=== PATIENT | female | born 1950 | race Hispanic/Latino ===

== ENCOUNTER 2018-09-28 12:07 | Emergency (ER) | payer OTHER ==
[~2018-09-28] VITALS: Ht 157.5 cm; Wt 78.0 kg
--- OUTSIDE RECORDS SUMMARY | 2018-09-28 12:09 | XMS REPORT ---
Author Author Barbara Puente [facility] eClinicalWorks Address Unknown Phone Unavailable Care Team Providers Care Composite Bond Worker Name Role Phone Barbara Puente Unavailable Encounters Encounter Location Date diab chk [facility] Nov 19, 2013 RESULTS [facility] Dec 03, 2013 Refill [facility] May 21, 2014 medication refill [facility] Jul 02, 2014 diabetes/HTN check [facility] May 30, 2013 test strips [facility] Jul 08, 2013 Unknown [facility] Oct 25, 2013 MED REFILL [facility] February 26, 2015 WWE [facility] Jul 17, 2014 Refill [facility] Sep 23, 2014 ABNORMAL UA [facility] March 31, 2015 Unknown [facility] April 03, 2015 2 WEEK FOLLOW UP [facility] March 17, 2015 Unknown [facility] March 29, 2015 Problems Problem Type Condition ICD-9 Code Onset Dates Condition Status Problem Hyperlipidemia 272.4 Active Problem Hypertension 401.9 Active Problem Kidney stones 592.0 Active Problem Fatty liver 571.8 Active Problem Type II diabetes mellitus, uncontrolled 250.02 Active Problem Obesity 278.00 Active Medications Medication Code System Code Instructions Start Date End Date Status Dosage OneTouch Verio MEDISPAN [address]-72 0 In Vitro use bid dx: 250.02 March 29, 2015 Active as directed Social History Social History Element Qualifiers Date Reported Depression Screening: . 02/26/15 March 17, 2015 Flu Vaccine: . no March 17, 2015 Last Colonoscopy: . never March 17, 2015 Last Bone Density: . 2012March 17, 2015 children . 3 March 17, 2015 Tobacco Use: . Are you a: never smoker March 17, 2015 Use of recreational / street drugs? . Answer: No March 17, 2015 Marital Status: . Magdiel March 17, 2015 Do you drink alcohol? . 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
--- OUTSIDE RECORDS SUMMARY | 2018-09-28 12:09 | XMS REPORT ---
Author Author He Aguilera Organization eClinicalWorks Address Unknown Phone Unavailable Care Team Providers Care Manager Air Name Role Phone He Aguilera CP Unavailable Encounters Encounter Location Date diab chk [facility] Nov 19, 2013 RESULTS [facility] Dec 03, 2013 Refill [facility] May 21, 2014 diabetes/HTN check [facility] May 30, 2013 test strips [facility] Jul 08, 2013 Unknown [facility] Oct 25, 2013 Problems Problem Type Condition ICD-9 Code Onset Dates Condition Status Problem Hypertension 401.9 Active Problem Type II diabetes mellitus, uncontrolled 250.02 Active Problem Hyperlipidemia 272.4 Active Problem Obesity 278.00 Active Problem Fatty liver 571.8 Active Medications Medication Code System Code Instructions Start Date End Date Status Dosage Januvia MEDISPAN [address]-22 100 mg Orally Once a day (must see doctor before next refill) May 30, 2013 Active 1 tablet [facility] [address]-80 5 MG Orally Once a day (must see doctor before next refill) Dec 03, 2013 Active 1 tablet Losartan Potassium MEDISPAN [address]-84 50 mg Orally once a day (must see doctor before next refill) Active 1 tablet MetFORMIN HCl ER (MOD) MEDISPAN [address]-70 1000 mg Orally twice a day (bid) (must see doctor before next refill) Nov 19, 2013 Active 1 tablet Social History Social History Element Qualifiers Date Reported children . 3 Dec 03, 2013 Tobacco Use: . Are you a: never smoker Dec 03, 2013 Marital Status: . Magidel Dec 03, 2013 Do you drink alcohol? . 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
--- OUTSIDE RECORDS SUMMARY | 2018-09-28 12:09 | XMS REPORT ---
Author Author Kathryn Rollins Organization eClinicalWorks Address Unknown Phone Unavailable Care Team Providers Care Life Science Teacher Name Role Phone Kathryn Rollins Unavailable Encounters Encounter Location Date diab chk [facility] Nov 19, 2013 RESULTS [facility] Dec 03, 2013 Refill [facility] May 21, 2014 medication refill [facility] Jul 02, 2014 diabetes/HTN check [facility] May 30, 2013 test strips [facility] Jul 08, 2013 Unknown [facility] Oct 25, 2013 MED REFILL [facility] February 26, 2015 WWE [facility] Jul 17, 2014 Refill [facility] Sep 23, 2014 Refill [facility] April 09, 2015 Unknown [facility] April 09, 2015 ABNORMAL UA [facility] March 31, 2015 Unknown [facility] April 03, 2015 2 WEEK FOLLOW UP [facility] March 17, 2015 Unknown [facility] March [...] End Date Status Dosage OneTouch Verio MEDISPAN [address]-47 1 intravenously testing TID dx: 250.02 (disp-300 strips) March 29, 2015 Active 1 strip Social History Social History Element Qualifiers Date Reported Depression Screening: . 02/26/15 March 31, 2015 Flu Vaccine: . no March 31, 2015 Last Colonoscopy: . never March 31, 2015 Last Bone Density: . 2012March 31, 2015 children . 3 March 31, 2015 Tobacco Use: . Are you a: never smoker March 31, 2015 Use of recreational / street drugs? . Answer: No March 31, 2015 Marital Status: . Magdiel March 31, 2015 Do you drink alcohol? . 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
--- OUTSIDE RECORDS SUMMARY | 2018-09-28 12:09 | XMS REPORT ---
Author Author Denisse Sanchez [facility] eClinicalWorks Address Unknown Phone Unavailable Care Team Providers Care Quarter Inspector Name Role Phone Denisse Sanchez Unavailable Encounters Encounter Location Date diabetes/HTN check [facility] May 30, 2013 test strips [facility] Jul 08, 2013 Problems Problem Type Condition ICD-9 Code Onset Dates Condition Status Problem Type II diabetes mellitus, uncontrolled 250.02 Active Problem Obesity 278.00 Active Problem Hypertension 401.9 Active Problem Fatty liver 571.8 Active Social History Social History Element Qualifiers Date Reported children . 3 May 30, 2013 Tobacco Use: . Are you a: never smoker May 30, 2013 Marital Status: . Magdiel May 30, 2013 Do you drink alcohol? . 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
--- OUTSIDE RECORDS SUMMARY | 2018-09-28 12:09 | XMS REPORT ---
Author Author Denisse Sanchez Organization eClinicalWorks Address Unknown Phone Unavailable Care Team Providers Care Portable Track Crew Chief Name Role Phone Denisse Sanchez Unavailable Encounters Encounter Location Date diabetes/HTN check [facility] May 30, 2013 Problems Problem Type Condition ICD-9 Code Onset Dates Condition Status Problem Type II diabetes mellitus, uncontrolled 250.02 Active Problem Obesity 278.00 Active Problem Hypertension 401.9 Active Assessment Type II diabetes mellitus, uncontrolled 250.02 Active Assessment Fatty liver 571.8 Active Problem Fatty liver 571.8 Active Assessment Hypertension 401.9 Active Medications Medication Code System Code Instructions Start Date End Date Status Dosage Januvia [facility] [address]-71 50 mg Orally Once a day January 02, 2013 Inactive 1 tablet MetFORMIN HCl ER [facility] [address]-07 500 mg Orally twice daily Active 1 tablet Januvia [facility] [address]-78 100 mg Orally Once a day May 30, 2013 Active 1 tablet Losartan Potassium [facility] [address]-39 50 MG once a day Active 1 tablet Social History Social History Element Qualifiers Date Reported children . 3 May 30, 2013 Tobacco Use: . Are you a: never smoker May 30, 2013 Marital Status: . Magdiel May 30, 2013 Do you drink alcohol? . 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 Metabolic Panel (14) Summary Purpose eClinicalWorks Submission
--- OUTSIDE RECORDS SUMMARY | 2018-09-28 12:09 | XMS REPORT ---
Author Author Ottoniel Lema Organization eClinicalWorks Address Unknown Phone Unavailable Care Team Providers Care Distribution Lineman Name Role Phone Ottoniel Lema CP Unavailable Allergies, Adverse Reactions, Alerts Substance Reaction Event Type N.K.D.A. Info Not Available Non Drug Allergy Problems Problem Type Condition Code Onset Dates Condition Status Assessment Colon cancer screening Z12.11 Active Problem Essential hypertension I10 Active Assessment Breast cancer screening Z12.31 Active Problem Type 2 diabetes mellitus without complication, without long-term current use of insulin E11.9 Active Problem Calculus of kidney N20.0 Active Problem Acne rosacea L71.9 Active Problem Fatty liver K76.0 Active Problem Obesity E66.9 Active Problem Dyslipidemia E78.5 Active Problem Type II diabetes mellitus, uncontrolled 250.02 Active Assessment Acne rosacea L71.9 Active Assessment Dyslipidemia E78.5 Active Assessment Fatty liver K76.0 Active Assessment Systolic murmur R01.1 Active Assessment Obesity E66.9 Active Assessment Type 2 diabetes mellitus without complication, without long-term current use of insulin E11.9 Active Assessment Essential hypertension I10 Active Medications Medication Code System Code Instructions Start Date End Date Status Dosage MetFORMIN HCl ER [facility] 96943675504 500 MG Oral Active TAKE 2 TABLET TWICE DAILY OneTouch Verio [facility] 49229426273 1 intravenously testing TID dx: 250.02 (disp- 300 strips) March 29, 2015 Active 1 strip OneTouch Lancets [facility] 68597242976 1 subcutaneously 2 times daily Dx:250.02 March 31, 2015 Active 1 lancet MetFORMIN HCl ER (MOD) [facility] 88072974825 1000 mg Orally once daily Active 2 tablets Farxiga [facility] 36339989243 10 MG Oral Active TAKE 1 TABLET BY MOUTH EVERY MORNING Januvia [facility] 89369347656 100 mg Orally Once a day Active 1 tablet GlyBURIDE [facility] [address]-71 5 MG Orally twice a day (bid) Sep 29, 2015 Active 1 tablet Doxycycline Hyclate [facility] 43369382363 50 mg Orally every 12 hrs March 15, 2018 May 15, 2018 Active 1 capsule Metrogel [facility] [address]-68 0.75 % Externally Twice a day March 15, 2018 Active 1 application to affected area Atorvastatin Calcium [facility] 41821744638 40 MG Oral Active TAKE 1 TABLET EVERY OTHER DAY FOR CHOLESTEROL Glimepiride [facility] 64992948784 2 MG Oral Active TAKE 1 TABLET IN THE MORNING AND 1/2 TABLET EVERY EVENING -TAKE WITH FOOD Trulicity 1.5mg [facility] 93922108787 1.5mg/0.5mL SQ Once a week Active 1.5mg/1 pen Losartan Potassium [facility] 74615352866 50 mg Orally once a day Active 1 tablet OneTouch Verio [facility] 29465366819 1 In Vitro twice daily DX:250.02 April 03, 2015 Active as directed Vital Signs Date/Time: March 15, 2018 BMI 33.80 Index Weight 176 lbs Height 60.5 in Temperature 98.7 F Cardiac Monitoring Heart Rate 90 /min Blood Pressure Diastolic 60 mm Hg Blood Pressure Systolic 136 mm Hg Results No Known Results Summary Purpose eClinicalWorks Submission
--- OUTSIDE RECORDS SUMMARY | 2018-09-28 12:09 | XMS REPORT ---
Author Author Denisse Sanchez [facility] eClinicalWorks Address Unknown Phone Unavailable Care Team Providers Care Rocket Engine Mechanic Name Role Phone Denisse Sanchez Unavailable Encounters Encounter Location Date diab chk [facility] Nov 19, 2013 diabetes/HTN check [facility] May 30, 2013 test strips [facility] Jul 08, 2013 Unknown [facility] Oct 25, 2013 Problems Problem Type Condition ICD-9 Code Onset Dates Condition Status Problem Type II diabetes mellitus, uncontrolled 250.02 Active Problem Obesity 278.00 Active Problem Hypertension 401.9 Active Assessment Hypertension 401.9 Active Assessment Obesity 278.00 Active Problem Fatty liver 571.8 Active Assessment Type II diabetes mellitus, uncontrolled 250.02 Active Medications Medication Code System Code Instructions Start Date End Date Status Dosage Losartan Potassium [facility] [address]-75 50 MG once a day Active 1 tablet MetFORMIN HCl ER (MOD) [facility] [address]-15 1000 mg Orally twice a day (bid) Nov 19, 2013 Active 1 tablet Januvia [facility] [address]-18 100 mg Orally Once a day May 30, 2013 Active 1 tablet MetFORMIN HCl ER [facility] [address]-54 500 mg Orally twice daily Inactive 2 tablet Social History Social History Element Qualifiers Date Reported children . 3 Nov 19, 2013 Tobacco Use: . Are you a: never smoker Nov 19, 2013 Marital Status: . Magdiel Nov 19, 2013 Do you drink alcohol? . 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 Metabolic Panel (14) Summary Purpose eClinicalWorks Submission
--- OUTSIDE RECORDS SUMMARY | 2018-09-28 12:09 | XMS REPORT ---
Author Author Kathryn Rollins [facility] eClinicalWorks Address Unknown Phone Unavailable Care Team Providers Care Store Receiving Clerk Name Role Phone Kathryn Rollins CP Unavailable Allergies, Adverse Reactions, Alerts Substance Reaction Event Type N.K.D.A. Info Not Available Non Drug Allergy Encounters Encounter Location Date diab chk [facility] Nov 19, 2013 RESULTS [facility] Dec 03, 2013 Refill [facility] May 21, 2014 medication refill [facility] Jul 02, 2014 diabetes/HTN check [facility] May 30, 2013 test strips [facility] Jul 08, 2013 Unknown [facility] Oct 25, 2013 MED REFILL [facility] February 26, 2015 WWE [facility] Jul 17, 2014 Refill [facility] Sep 23, 2014 Problems Problem Type Condition ICD-9 Code Onset Dates Condition Status Assessment Hyperlipidemia 272.4 Active Assessment Hypertension 401.9 Active Assessment Type II diabetes mellitus, uncontrolled 250.02 Active Problem Hyperlipidemia 272.4 Active Problem Hypertension 401.9 Active Problem Kidney stones 592.0 Active Problem Fatty liver 571.8 Active Assessment Other follow-up examination V67.59 Active Problem Type II diabetes mellitus, uncontrolled 250.02 Active Problem Obesity 278.00 Active Assessment Abnormal EKG 794.31 Active Assessment Heart murmur 785.2 Active Assessment Encounter for screening mammogram for breast cancer V76.12 Active Assessment Obesity 278.00 Active Medications Medication Code System Code Instructions Start Date End Date Status Dosage MetFORMIN HCl ER (MOD) [facility] [address]-10 1000 mg Orally once daily Active 2 tablets GlyBURIDE [facility] [address]-32 5 MG Orally Once a day December 26, 2014 Active 1 tablet Losartan Potassium [facility] [address]-00 50 mg Orally once a day Active 1 tablet Januvia [facility] [address]-86 100 mg Orally Once a day Active 1 tablet Social History Social History Element Qualifiers Date Reported Last Bone Density: . 2013 February 26, 2015 Flu Vaccine: . no February 26, 2015 Last Colonoscopy: . never February 26, 2015 children . 3 February 26, 2015 Tobacco Use: . Are you a: never smoker February 26, 2015 Use of recreational / street drugs? . Answer: No February 26, 2015 Marital Status: . Magdiel February 26, 2015 Do you drink alcohol? . 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
--- OUTSIDE RECORDS SUMMARY | 2018-09-28 12:09 | XMS REPORT ---
Author Author Denisse Sanchez [facility] eClinicalWorks Address Unknown Phone Unavailable Care Team Providers Care Planning Analyst Name Role Phone Denisse Sanchez Unavailable Encounters Encounter Location Date diab chk [facility] Nov 19, 2013 RESULTS [facility] Dec 03, 2013 diabetes/HTN check [facility] May 30, 2013 test strips [facility] Jul 08, 2013 Unknown [facility] Oct 25, 2013 Problems Problem Type Condition ICD-9 Code Onset Dates Condition Status Assessment Hyperlipidemia 272.4 Active Assessment Obesity 278.00 Active Assessment Fatty liver 571.8 Active Assessment Visit for screening mammogram V76.12 Active Problem Hypertension 401.9 Active Problem Type II diabetes mellitus, uncontrolled 250.02 Active Problem Hyperlipidemia 272.4 Active Assessment Type II diabetes mellitus, uncontrolled 250.02 Active Assessment Hypertension 401.9 Active Problem Obesity 278.00 Active Problem Fatty liver 571.8 Active Medications Medication Code System Code Instructions Start Date End Date Status Dosage GlyBURIDE [facility] [address]-71 5 MG Orally Once a day Dec 03, 2013 Active 1 tablet Januvia [facility] [address]-04 100 mg Orally Once a day May 30, 2013 Active 1 tablet Losartan Potassium [facility] [address]-74 50 MG once a day Active 1 tablet MetFORMIN HCl ER (MOD) [facility] [address]-17 1000 mg Orally twice a day (bid) Nov 19, 2013 Active 1 tablet Social History Social History Element Qualifiers Date Reported children . 3 Dec 03, 2013 Tobacco Use: . Are you a: never smoker Dec 03, 2013 Marital Status: . Magdiel Dec 03, 2013 Do you drink alcohol? . 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
--- OUTSIDE RECORDS SUMMARY | 2018-09-28 12:09 | XMS REPORT ---
Author Author Jason Warren Organization eClinicalWorks Address Unknown Phone Unavailable Care Team Providers Care Cash Posting Specialist Name Role Phone Jason Warren CP Unavailable Encounters Encounter Location Date diab chk [facility] Nov 19, 2013 RESULTS [facility] Dec 03, 2013 Refill [facility] May 21, 2014 medication refill [facility] Jul 02, 2014 diabetes/HTN check [facility] May 30, 2013 test strips [facility] Jul 08, 2013 Unknown [facility] Oct 25, 2013 WWE [facility] Jul 17, 2014 Refill [facility] Sep 23, 2014 Problems Problem Type Condition ICD-9 Code Onset Dates Condition Status Problem Hyperlipidemia 272.4 Active Problem Hypertension 401.9 Active Problem Kidney stones 592.0 Active Problem Fatty liver 571.8 Active Problem Type II diabetes mellitus, uncontrolled 250.02 Active Problem Obesity 278.00 Active Medications Medication Code System Code Instructions Start Date End Date Status Dosage Januvia [facility] [address]-74 100 mg Orally Once a day May 30, 2013 Active 1 tablet MetFORMIN HCl ER (MOD) [facility] [address]-38 1000 mg Orally twice a day (bid) Nov 19, 2013 Active 1 tablet [facility] [address]-66 5 MG Orally Once a day Dec 03, 2013 Active 1 tablet Losartan Potassium [facility] [address]-35 50 mg Orally once a day Active 1 tablet Social History Social History Element Qualifiers Date Reported children . 3 Jul 17, 2014 Tobacco Use: . Are you a: never smoker Jul 17, 2014 Marital Status: . Magdiel Jul 17, 2014 Do you drink alcohol? . 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
--- OUTSIDE RECORDS SUMMARY | 2018-09-28 12:09 | XMS REPORT ---
Author Author Barbara Ferris Organization [employer] Address Unknown Phone Unavailable Care Team Providers Care Insurance Instructor Name Role Phone Barbara Ferris CP Unavailable Encounters Encounter Location Date diabetes/HTN check [facility] May 30, 2013 test strips [facility] Jul 08, 2013 Unknown [facility] Oct 25, 2013 Problems Problem Type Condition ICD-9 Code Onset Dates Condition Status Problem Type II diabetes mellitus, uncontrolled 250.02 Active Problem Obesity 278.00 Active Problem Hypertension 401.9 Active Problem Fatty liver 571.8 Active Medications Medication Code System Code Instructions Start Date End Date Status Dosage Accu-Chek Adelaida MULTUM 64376 Test In Vitro USE BID Oct 25, 2013 Active as directed Social History Social History [...]
--- OUTSIDE RECORDS SUMMARY | 2018-09-28 12:09 | XMS REPORT ---
Author Author Jason Warren Organization [employer] Address Unknown Phone Unavailable Care Team Providers Care Wire Frame Maker Name Role Phone Jason Warren CP Unavailable Allergies, Adverse Reactions, Alerts Substance Reaction Event Type N.K.D.A. Info Not Available Non Drug Allergy Encounters Encounter Location Date diab chk [facility] Nov 19, 2013 RESULTS [facility] Dec 03, 2013 Refill [facility] May 21, 2014 medication refill [facility] Jul 02, 2014 diabetes/HTN check [facility] May 30, 2013 test strips [facility] Jul 08, 2013 Unknown [facility] Oct 25, 2013 Problems Problem Type Condition ICD-9 Code Onset Dates Condition Status Assessment Urinary tract infection 599.0 Active Assessment Type II diabetes mellitus, uncontrolled 250.02 Active Assessment Hyperlipidemia 272.4 Active Assessment Encounter for long-term (current) use of other medications V58.69 Active Problem Hyperlipidemia 272.4 Active Problem Hypertension 401.9 Active Problem Kidney stones 592.0 Active Problem Fatty liver 571.8 Active Assessment Hypertension 401.9 Active Problem Type II diabetes mellitus, uncontrolled 250.02 Active Problem Obesity 278.00 Active Medications Medication Code System Code Instructions Start Date End Date Status Dosage Losartan Potassium [facility] [address]-80 50 mg Orally once a day Active 1 tablet [facility] [address]-46 800-160 MG Orally twice a day (bid) Jul 02, 2014 Jul 09, 2014 Active as directed MetFORMIN HCl ER (MOD) [facility] [address]-83 1000 mg Orally twice a day (bid) Nov 19, 2013 Active 1 tablet Januvia [facility] [address]-98 100 mg Orally Once a day May 30, 2013 Active 1 tablet GlyBURIDE [facility] [address]-99 5 MG Orally Once a day Dec 03, 2013 Active 1 tablet Social History Social History Element Qualifiers Date Reported children . 3 Jul 02, 2014 Tobacco Use: . Are you a: never smoker Jul 02, 2014 Marital Status: . Magdiel Jul 02, 2014 Do you drink alcohol? . 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
--- OUTSIDE RECORDS SUMMARY | 2018-09-28 12:09 | XMS REPORT ---
Author Author Kathryn Rollins [facility] e[employer] Address Unknown Phone Unavailable Care Team Providers Care Woods Rider Name Role Phone Kathryn Rollins CP Unavailable Allergies, Adverse Reactions, Alerts Substance Reaction Event Type N.K.D.A. Info Not Available Non Drug Allergy Encounters Encounter Location Date diab chk [facility] Nov 19, 2013 RESULTS [facility] Dec 03, 2013 Refill [facility] May 21, 2014 medication refill [facility] Jul 02, 2014 diabetes/HTN check [facility] May 30, 2013 2 WEEK FOLLOW UP [facility] March 17, 2015 test strips [facility] Jul 08, 2013 Unknown [facility] Oct 25, 2013 MED REFILL [facility] February 26, 2015 WWE [facility] Jul 17, 2014 Refill [facility] Sep 23, 2014 Problems Problem Type Condition ICD-9 Code Onset Dates Condition Status Assessment Obesity 278.00 Active Assessment Hypertension 401.9 Active Assessment Type II diabetes mellitus, uncontrolled 250.02 Active Problem Hyperlipidemia 272.4 Active Problem Hypertension 401.9 Active Problem Kidney stones 592.0 Active Problem Fatty liver 571.8 Active Assessment Encounter to discuss test results V65.49 Active Problem Type II diabetes mellitus, uncontrolled 250.02 Active Problem Obesity 278.00 Active Assessment Elevated LFTs 790.6 Active Assessment Leukocytes in urine 791.7 Active Assessment Urinary tract infection 599.0 Active Assessment Hyperlipidemia 272.4 Active Assessment BMI 36.0-36.9,adult V85.36 Active Assessment Fatty liver 571.8 Active Medications Medication Code System Code Instructions Start Date End Date Status Dosage Januvia [facility] [address]-35 100 mg Orally Once a day Active 1 tablet MetFORMIN HCl ER (MOD) [facility] [address]-75 1000 mg Orally once daily Active 2 tablets Invokana [facility] [address]-14 300 MG Orally Once a day March 17, 2015 Jul 15, 2015 Active 1 tablet Macrobid [facility] [address]-60 100 mg Orally every 12 hrs March 17, 2015 March 24, 2015 Active 1 capsule with food GlyBURIDE [facility] [address]-88 5 MG Orally Once a day December 26, 2014 Active 1 tablet Losartan Potassium [facility] [address]-93 50 mg Orally once a day Active [...] 2015 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
--- OUTSIDE RECORDS SUMMARY | 2018-09-28 12:09 | XMS REPORT ---
Author Author Jason Warren Organization [employer] Address Unknown Phone Unavailable Care Team Providers Care Road Roller Operator Hot Mix Name Role Phone Jason Warren CP Unavailable Allergies, Adverse Reactions, Alerts Substance Reaction Event Type N.K.D.A. Info Not Available Non Drug Allergy Encounters Encounter Location Date diab chk [facility] Nov 19, [address] [facility] Dec 03, [address] [facility] May 21, [address] [facility] Jul 02, 2014 diabetes/HTN check [facility] May 30, [address] [facility] Jul 08, [address] [facility] Oct 25, [address] [facility] Jul 17, 2014 Problems Problem Type Condition ICD-9 Code Onset Dates Condition Status Assessment Hypertension 401.9 Active Assessment Hyperlipidemia 272.4 Active Assessment Obesity 278.00 Active Assessment Well woman exam with routine gynecological exam V72.31 Active Assessment Type II diabetes mellitus, uncontrolled 250.02 Active Problem Hyperlipidemia 272.4 Active Problem Hypertension 401.9 Active Problem Kidney stones 592.0 Active Problem Fatty liver 571.8 Active Assessment Fatty liver 571.8 Active Problem Type II diabetes mellitus, uncontrolled 250.02 Active Problem Obesity 278.00 Active Medications Medication Code System Code Instructions Start Date End Date Status Dosage Losartan [facility] [address]-99 50 mg Orally once a day Active 1 tablet Januvia [facility] [address]-28 100 mg Orally Once a day May 30, 2013 Active 1 tablet GlyBURIDE [facility] [address]-51 5 MG Orally Once a day Dec 03, 2013 Active 1 tablet MetFORMIN HCl ER (MOD) [facility] [address]-30 1000 mg Orally twice a day (bid) Nov 19, 2013 Active 1 tablet Social History Social History Element Qualifiers Date Reported children . 3 Jul 17, 2014 Tobacco Use: . Are you a: never smoker Jul 17, 2014 Marital Status: . [facility] Jul 17, 2014 Do you drink alcohol? . Status: No Jul 17, 2014 Occupation: employed. Sales Jul 17, 2014 Vital Signs Date/Time: Jul 17, 2014 Weight 189 lbs Height 60.5 in Cardiac Monitoring Heart Rate 76 /min Blood Pressure Diastolic 66 mm Hg Blood Pressure Systolic 109 mm Hg Summary Purpose eClinicalWorks Submission
--- OUTSIDE RECORDS SUMMARY | 2018-09-28 12:09 | XMS REPORT ---
Author Author Kathryn Rollins [facility] e[employer] Address Unknown Phone Unavailable Care Team Providers Care Wash Crew Person Name Role Phone Kathryn Rollins Unavailable Encounters Encounter Location Date diab chk [facility] Nov 19, 2013 RESULTS [facility] Dec 03, 2013 Refill [facility] May 21, 2014 medication refill [facility] Jul 02, 2014 diabetes/HTN check [facility] May 30, 2013 test strips [facility] Jul 08, 2013 Unknown [facility] Oct 25, 2013 MED REFILL [facility] February 26, 2015 WWE [facility] Jul 17, 2014 Refill [facility] Sep 23, 2014 Refill [facility] April 09, 2015 Unknown [facility] April 09, 2015 ABNORMAL UA [facility] March 31, 2015 Unknown [facility] April 03, 2015 2 WEEK FOLLOW UP [facility] March 17, 2015 Unknown [facility] March 29, 2015 Problems Problem Type Condition ICD-9 Code Onset Dates Condition Status Problem Hyperlipidemia 272.4 Active Problem Hypertension 401.9 Active Problem Kidney stones 592.0 Active Problem Fatty liver 571.8 Active Problem Type II diabetes mellitus, uncontrolled 250.02 Active Problem Obesity 278.00 Active Medications Medication Code System Code Instructions Start Date End Date Status Dosage Macrobid [facility] [address]-57 100 mg PO bid April 09, 2015 April 16, 2015 Active 1 capsule Social History Social History Element Qualifiers Date [...]
--- OUTSIDE RECORDS SUMMARY | 2018-09-28 12:09 | XMS REPORT | Continuity of Care Document ---
Author Author [facility] Interface Address Unknown Phone Unavailable Problems Problem Status Onset Date Classification Date Reported Comments Source Z12.39 - ENCOUNTER FOR OTH SCREENING FO Active 06/20/2018 [facility] [place] SCREENING Active 06/27/2014 [place] ROUTINE Active 09/16/2011 [facility] Type II diabetes mellitus, uncontrolled Active Problem 03/22/2018 [facility] Obesity Active Problem 04/10/2015 [facility] Hypertension Active Problem 04/10/2015 [facility] Fatty liver Active Problem 04/10/2015 [facility] Hyperlipidemia Active Problem 04/10/2015 [facility] Essential hypertension Active Problem 03/22/2018 [facility] Breast cancer screening Active Diagnosis 03/22/2018 [facility] Type 2 diabetes mellitus without complication, without long-term current use of insulin Active Problem 03/22/2018 [facility] Calculus of kidney Active Problem 03/22/2018 [facility] Acne rosacea Active Problem 03/22/2018 [facility] Fatty liver Active Problem 03/22/2018 [facility] Obesity Active Problem 03/22/2018 [facility] Dyslipidemia Active Problem 03/22/2018 [facility] Systolic murmur Active Diagnosis 03/22/2018 [facility] Kidney stones Active Problem 04/10/2015 [facility] Other follow-up examination Active Diagnosis 02/28/2015 [facility] Abnormal EKG Active Diagnosis 02/28/2015 [facility] Heart murmur Active Diagnosis 02/28/2015 [facility] Encounter for screening mammogram for breast cancer Active Diagnosis 02/28/2015 [facility] Urinary tract infection Active Diagnosis 03/19/2015 [facility] Encounter for long-term use of other medications Active Diagnosis 07/09/2014 [facility] Encounter to discuss test results Active Diagnosis 03/19/2015 [facility] Elevated LFTs Active Diagnosis 03/19/2015 [facility] Leukocytes in urine Active Diagnosis 03/19/2015 [facility] BMI 36.0-36.9,adult Active Diagnosis 03/19/2015 [facility] Medications Medication Details Route Status Patient Instructions Ordering Provider Order Date Source Doxycycline Hyclate 1 capsule Orally Active 50 mg Orally every 12 hrs [place] 03/15/2018 [facility] Metrogel 1 application to affected area Externally Active 0.75 % Externally Twice a day [place] 03/15/2018 [facility] GlyBURIDE 1 tablet Orally Active 5 MG Orally twice a day (bid) [place] 09/29/2015 [facility] Macrobid 1 capsule PO Active 100 mg PO bid [facility] OneTouch Verio as directed In Vitro Active 1 In Vitro twice daily DX:250.02 [place] 04/03/2015 [facility] OneTouch Lancets 1 lancet subcutaneously Active 1 subcutaneously 2 times daily Dx:250.02 [place] 03/31/2015 [facility] OneTouch Verio 1 strip intravenously Active 1 intravenously testing TID dx: 250.02 (disp-300 strips) [place] 03/29/2015 [facility] OneTouch Verio 1 strip intravenously Active 1 intravenously testing TID dx: 250.02 (disp-300 strips) [facility] Invokana 1 tablet Orally Active 300 MG Orally Once a day [facility] 03/17/2015 [facility] Macrobid 1 capsule with food Orally Active 100 mg Orally every 12 hrs [facility] 03/17[facility]2015 [facility] GlyBURIDE 1 tablet Orally Active 5 MG Orally Once a day [facility] 12/26/2014 [facility] Bactrim DS as directed Orally Active 800-160 MG Orally twice a day (bid) Kelvin 07/02/2014 [facility] GlyBURIDE 1 tablet Orally Active 5 MG Orally Once a day [facility] 12/03/2013 [facility] MetFORMIN HCl ER (MOD) 1 tablet Orally Active 1000 mg Orally twice a day (bid) Buntyn 11/19/2013 [facility] MetFORMIN HCl ER (MOD) 1 tablet Orally Active 1000 mg Orally twice a day (bid) Laura 11/19/2013 [facility] Accu-Chek Adelaida as directed In Vitro Active Test In Vitro USE BID Josy 10/25/2013 [facility] Januvia 1 tablet Orally Active 100 mg Orally Once a day Bunn 05/30/2013 [facility] Januvia 1 tablet Orally No Longer Active 50 mg Orally Once a day Laura 01/02/2013 [facility] Losartan Potassium 1 tablet Orally Active 50 mg Orally once a day [facility] MetFORMIN HCl ER 2 tablet Orally No Longer Active 500 mg Orally twice daily [facility] MetFORMIN HCl ER TAKE 2 TABLET TWICE DAILY Oral Active 500 MG Oral [facility] MetFORMIN HCl ER (MOD) 2 tablets Orally Active 1000 mg Orally once daily [facility] Farxiga TAKE 1 TABLET BY MOUTH EVERY MORNING Oral Active 10 MG Oral [facility] Januvia 1 tablet Orally Active 100 mg Orally Once a day [facility] Atorvastatin Calcium TAKE 1 TABLET EVERY OTHER DAY FOR CHOLESTEROL Oral Active 40 MG Oral [facility] Glimepiride TAKE 1 TABLET IN THE MORNING AND 1/2 TABLET EVERY EVENING -TAKE WITH FOOD Oral Active 2 MG Oral [facility] Trulicity 1.5mg 1.5mg/1 pen SQ Active 1.5mg/0.5mL SQ Once a week [facility] Losartan Potassium 1 tablet Orally Active 50 mg Orally once a day [facility] MetFORMIN HCl ER (MOD) 2 tablets Orally Active 1000 mg [facility] Januvia 1 tablet Orally Active 100 mg Orally Once a day [facility] Allergies, Adverse Reactions, Alerts Substance Category Reaction Severity Reaction type Status Date Reported Comments Source N.K.D.A. Adverse Reaction Info Not Available Adverse Reaction Active 03/15/2018 [facility] Immunizations Immunization Date Given Site Status Last Updated Comments Source Results Order Name Results Value Reference Range Date Interpretation Comments Source Bone Density DXA [employer] MA Bone Density DXA Dual Energy MA BONE DENSITY ASSESSMENT: 07/10/2018 CLINICAL DATA: Post menopausal and clinical risk for osteoporosis. Z13.820- Screening for osteoporosis. Encounter For Screening For Osteoporosis/Z13.820 FINDINGS: Bone density evaluation was performed 07/10/2018 on the right femur neck using a Hologic unit. The BMD average for the exam is 0.504 g/cm2. The T-score is -3.10 and the Z-score is -1.60. This matches the World Health Organization's criteria for osteoporosis and places the patient at a high risk for fracture. An additional bone density evaluation was performed 07/10/2018 on the left femur neck using a Hologic unit. The BMD average for the exam is 0.507 g/cm2. The T- score is -3.10 and the Z-score is -1.60. This matches the World Health Organization's criteria for osteoporosis and places the patient at a high risk for fracture. An additional bone density evaluation was performed 07/10/2018 on the right hip using a Hologic unit. The BMD average for the exam is 0.685 g/cm2. The T-score is -2.10 and the Z-score is -0.80. This matches the World Health Organization's criteria for osteopenia and places the patient at a medium risk for fracture. An additional bone density evaluation was performed 07/10/2018 on the left hip using a Hologic unit. The BMD average for the exam is 0.785 g/cm2. The T-score is -1.30 and the Z-score is -0.10. This matches the World Health Organization's criteria for osteopenia and places the patient at a medium risk for fracture. An additional bone density evaluation was performed 07/10/2018 on the AP L1-L4 region of spine using a Hologic unit. The BMD average for the exam is 0.806 g/cm2. The T-score is -2.20 and the Z-score is -0.30. This matches the World Health Organization's criteria for osteopenia and places the patient at a medium risk for fracture. IMPRESSION: OSTEOPOROSIS Patient is at high risk for fracture. Patient consult w/primary care provider is recommended. Claire Lovett M.D. ms/penrad:07/10/2018 13:51:33 Insect Control Inspector(s): Tiara Daniels RT(R)(M), [facility] 07/10/2018 - - Read by: Claire Lovett MD Dictated Date/time: 07/10/18 13:51 Electronically Signed by: Claire Lovett MD 07/10/18 13:51 FINAL REPORT [facility] Breast Mammo Scrn CORDELL incl CAD MA Breast Mammo Scrn CORDELL incl CAD MA BILATERAL DIGITAL SCREENING MAMMOGRAM WITH CAD: 07/10/2018 CLINICAL: Encounter For Screening Mammogram For Malignant Neoplasm Of Breast/Z12.31. Current study was evaluated with a Computer Aided Detection (CAD) system. COMPARISON:Comparison is made to exam dated: 09/27/2011 mammogram - [facility]. TECHNIQUE: Mammographic views were obtained using digital acquisition. Current study was also evaluated with a Computer Aided Detection (CAD) system. FINDINGS: There are scattered fibroglandular densities in both breasts. There are benign vascular calcifications, calcifications, and intramammary nodes in both breasts. No significant masses, calcifications, or other findings are seen in either breast. There has been no significant interval change. IMPRESSION: BENIGN RECOMMENDATION:There is no mammographic evidence of malignancy. A 1 year screening mammogram is recommended.(07/11/2019) This exam was interpreted at [id number] for SILVANA [place] 15. Professional services are provided by the [facility]. Kinjal Gaytan M.D. ak/ginarad:07/10/2018 10:18:58 Insect Control Inspector(s): RT Rebeca(R)(M), [facility] letter sent: BI-RADS 1/2 Mammogram BI-RADS: 2 Benign 07/10/2018 - - Read by: Kinjal Gaytan MD Dictated Date/time: 07/10/18 10:18 Electronically Signed by: Kinjal Gaytan MD 07/10/18 10:18 FINAL REPORT [facility] Vital Signs Vital Sign Value Date Comments Source Weight 176 03/15/2018 [facility] Height 60.5 03/15/2018 [facility] Temperature Oral (F) 98.7 F 03/15/2018 [facility] Heart Rate 90 03/15/2018 [facility] Diastolic (mm Hg) 60 03/15/2018 [facility] Systolic (mm Hg) 136 03/15/2018 [facility] Weight 192 03/17/2015 [facility] Height 60.5 03/17/2015 [facility] Heart Rate 84 03/17/2015 [facility] Diastolic (mm Hg) 70 03/17/2015 [facility] Systolic (mm Hg) 124 03/17/2015 [facility] Weight 192 02/26/2015 [facility] Height 60.5 02/26/2015 [facility] Heart Rate 97 02/26/2015 [facility] Diastolic (mm Hg) 62 02/26/2015 [facility] Systolic (mm Hg) 120 02/26/2015 [facility] Weight 189 07/17/2014 [facility] Height 60.5 07/17/2014 [facility] Heart Rate 76 07/17/2014 [facility] Diastolic (mm Hg) 66 07/17/2014 [facility] Systolic (mm Hg) 109 07/17/2014 [facility] Weight 188 07/02/2014 [facility] Height 60.5 07/02/2014 [facility] Heart Rate 80 07/02/2014 [facility] Diastolic (mm Hg) 60 07/02/2014 [facility] Systolic (mm Hg) 110 07/02/2014 [facility] Weight 177 12/03/2013 [facility] Height 60.5 12/03/2013 [facility] Heart Rate 108 12/03/2013 [facility] Diastolic (mm Hg) 70 12/03/2013 [facility] Systolic (mm Hg) 136 12/03/2013 [facility] Weight 179 11/19/2013 [facility] Height 60.5 11/19/2013 [facility] Heart Rate 108 11/19/2013 [facility] Diastolic (mm Hg) 80 11/19/2013 [facility] Systolic (mm Hg) 138 11/19/2013 [facility] Weight 184 05/30/2013 [facility] Height 60.5 05/30/2013 [facility] Heart Rate 94 05/30/2013 [facility] Diastolic (mm Hg) 78 05/30/2013 [facility] Systolic (mm Hg) 142 05/30/2013 [facility] Encounters Location Location Details Encounter Type Encounter Number Reason For Visit Attending Provider ADM Date DC Date Status Source [facility] [id number] ROUTINE AMIR GHEBRANIOUS 09/27/2011 09/27/2011 Active [facility] diabetes/HTN check [id number] 05/30/2013 05/30/2013 [facility] diabetes/HTN check [id number] 05/30/2013 05/30/2013 [facility] diabetes/HTN check [id number] 05/30/2013 05/30/2013 [facility] diabetes/HTN check [id number] 05/30/2013 05/30/2013 [facility] diabetes/HTN check [id number] 05/30/2013 05/30/2013 [facility] diabetes/HTN check [id number] 05/30/2013 05/30/2013 [facility] diabetes/HTN check [id number] 05/30/2013 05/30/2013 [facility] diabetes/HTN check [id number] 05/30/2013 05/30/2013 [facility] diabetes/HTN check [id number] 05/30/2013 05/30/2013 [facility] diabetes/HTN check [id number] 05/30/2013 05/30/2013 [facility] diabetes/HTN check [id number] 05/30/2013 05/30/2013 [facility] diabetes/HTN check [id number] 05/30/2013 05/30/2013 [facility] diabetes/HTN check [id number] 05/30/2013 05/30/2013 [facility] diabetes/HTN check [id number] 05/30/2013 05/30/2013 [facility] test strips [id number] 07/08/2013 07/08/2013 [facility] test strips [id number] 07/08/2013 07/08/2013 [facility] test strips [id number] 07/08/2013 07/08/2013 [facility] test strips [id number] 07/08/2013 07/08/2013 [facility] test strips [id number] 07/08/2013 07/08/2013 [facility] test strips [id number] 07/08/2013 07/08/2013 [facility] test strips [id number] 07/08/2013 07/08/2013 [facility] test strips [id number] 07/08/2013 07/08/2013 [facility] test strips [id number] 07/08/2013 07/08/2013 [facility] test strips [id number] 07/08/2013 07/08/2013 [facility] test strips [id number] 07/08/2013 07/08/2013 [facility] test strips [id number] 07/08/2013 07/08/2013 [facility] test strips [id number] 07/08/2013 07/08/2013 [facility] Unknown [id number] 10/25/2013 10/25/2013 [facility] Unknown [id number] 10/25/2013 10/25/2013 [facility] Unknown [id number] 10/25/2013 10/25/2013 [facility] Unknown [id number] 10/25/2013 10/25/2013 [facility] Unknown [id number] 10/25/2013 10/25/2013 [facility] Unknown [id number] 10/25/2013 10/25/2013 [facility] Unknown [id number] 10/25/2013 10/25/2013 [facility] Unknown [id number] 10/25/2013 10/25/2013 [facility] Unknown [id number] 10/25/2013 10/25/2013 [facility] Unknown [id number] 10/25/2013 10/25/2013 [facility] Unknown [id number] 10/25/2013 10/25/2013 [facility] Unknown [id number] 10/25/2013 10/25/2013 [facility] diab k [id number] 11/19/2013 11/19/2013 [facility] diab k [id number] 11/19/2013 11/19/2013 [facility] diab k [id number] 11/19/2013 11/19/2013 [facility] diab k [id number] 11/19/2013 11/19/2013 [facility] diab k [id number] 11/19/2013 11/19/2013 [facility] diab k [id number] 11/19/2013 11/19/2013 [facility] diab k [id number] 11/19/2013 11/19/2013 [facility] diab k [id number] 11/19/2013 11/19/2013 [facility] diab k [id number] 11/19/2013 11/19/2013 [facility] diab k [id number] 11/19/2013 11/19/2013 [facility] diab k [id number] 11/19/2013 11/19/2013 [facility] RESULTS [id number] 12/03/2013 12/03/2013 [facility] RESULTS [id number] 12/03/2013 12/03/2013 [facility] RESULTS [id number] 12/03/2013 12/03/2013 [facility] RESULTS [id number] 12/03/2013 12/03/2013 [facility] RESULTS [id number] 12/03/2013 12/03/2013 [facility] RESULTS [id number] 12/03/2013 12/03/2013 [facility] [facility] RESULTS [id number] 12/03/2013 12/03/2013 [facility] RESULTS [id number] 12/03/2013 12/03/2013 [facility] RESULTS [id number] 12/03/2013 12/03/2013 [facility] RESULTS [id number] 12/03/2013 12/03/2013 [facility] Refill [id number] 05/21/2014 05/21/2014 [facility] Refill [id number] 05/21/2014 05/21/2014 [facility] Refill [id number] 05/21/2014 05/21/2014 [facility] Refill [id number] 05/21/2014 05/21/2014 [facility] Refill [id number] 05/21/2014 05/21/2014 [facility] Refill [id number] 05/21/2014 05/21/2014 [facility] Refill [id number] 05/21/2014 05/21/2014 [facility] Refill [id number] 05/21/2014 05/21/2014 [facility] Refill [id number] 05/21/2014 05/21/2014 [facility] medication refill [id number] 07/02/2014 07/02/2014 [facility] medication refill [id number] 07/02/2014 07/02/2014 [facility] medication refill [id number] 07/02/2014 07/02/2014 [facility] medication refill [id number] 07/02/2014 07/02/2014 [facility] medication refill [id number] 07/02/2014 07/02/2014 [facility] medication refill [id number] 07/02/2014 07/02/2014 [facility] medication refill [id number] 07/02/2014 07/02/2014 [facility] medication refill [id number] 07/02/2014 07/02/2014 [facility] WWE [id number] 07/17/2014 07/17/2014 [facility] WWE [id number] 07/17/2014 07/17/2014 [facility] WWE [id number] 07/17/2014 07/17/2014 [facility] E [id number] 07/17/2014 07/17/2014 [facility] E [id number] 07/17/2014 07/17/2014 [facility] E [id number] 07/17/2014 07/17/2014 [facility] E [id number] 07/17/2014 07/17/2014 [facility] Refill [id number] 09/23/2014 09/23/2014 [facility] Refill [id number] 09/23/2014 09/23/2014 [facility] Refill [id number] 09/23/2014 09/23/2014 [facility] Refill [id number] 09/23/2014 09/23/2014 [facility] Refill [id number] 09/23/2014 09/23/2014 [facility] Refill [id number] 09/23/2014 09/23/2014 [facility] MED REFILL [id number] 02/26/2015 02/26/2015 [facility] MED REFILL [id number] 02/26/2015 02/26/2015 [facility] MED REFILL [id number] 02/26/2015 02/26/2015 [facility] MED REFILL [id number] 02/26/2015 02/26/2015 [facility] MED REFILL [id number] 02/26/2015 02/26/2015 [facility] 2 WEEK FOLLOW UP [id number] 03/17/2015 03/17/2015 [facility] 2 WEEK FOLLOW UP [id number] 03/17/2015 03/17/2015 [facility] 2 WEEK FOLLOW UP [id number] 03/17/2015 03/17/2015 [facility] 2 WEEK FOLLOW UP [id number] 03/17/2015 03/17/2015 [facility] Unknown [id number] 03/30/2015 03/30/2015 [facility] Unknown [id number] 03/30/2015 03/30/2015 [facility] Unknown [id number] 03/30/2015 03/30/2015 [facility] ABNORMAL UA [id number] 03/31/2015 03/31/2015 [facility] ABNORMAL UA [id number] 03/31/2015 03/31/2015 [facility] ABNORMAL UA [id number] 03/31/2015 03/31/2015 [facility] Unknown [id number] 04/03/2015 04/03/2015 [facility] Unknown [id number] 04/03/2015 04/03/2015 [facility] Unknown [id number] 04/03/2015 04/03/2015 [facility] Refill [id number] 04/09/2015 04/09/2015 [facility] Refill [id number] 04/09/2015 04/09/2015 [facility] Unknown [id number] 04/09/2015 04/09/2015 [facility] Unknown [id number] 04/09/2015 04/09/2015 [facility] Procedures Procedure Code Date Perfomer Comments Source
[2018-09-28] MEDS ORDERED: NAPROXEN250 MG PO (12:25)
[2018-09-28] MEDS ORDERED: FLOMAX0.4 MG PO (12:25)
--- NOTE | 2018-09-28 13:55 | Diagnostic Imaging Report ---
EXAM: CT Abdomen and Pelvis WITHOUT contrast INDICATION: Left flank pain COMPARISON: None. TECHNIQUE: Abdomen and pelvis were scanned utilizing a multidetector helical scanner from the lung base to the pubic symphysis without administration of IV contrast. Absence of intravenous contrast decreases sensitivity for detection of focal lesions and vascular pathology. Coronal and sagittal reformations were obtained. Routine protocol was performed. IV CONTRAST: None ORAL CONTRAST: Water COMPLICATIONS: None RADIATION DOSE: Total DLP: 752.7 mGy*cm Estimated effective dose: (DLP x 0.015 x size factor) mSv CTDIvol has been reviewed. It is below the limits set by the Radiation Protocol Committee (RPC). FINDINGS: LINES and TUBES: None. LOWER THORAX: Punctate nonspecific left lobe nodule (series 3, image 12). HEPATOBILIARY: Nodular hepatic contour. ill-defined subcentimeter hepatic dome and right hepatic lobe hypodensities (series 2, image 13 and 9) cannot be characterized on this unenhanced study. No biliary ductal dilation. GALLBLADDER: Surgically absent. SPLEEN: Splenomegaly measuring 14.3 cm. PANCREAS: No focal masses or ductal dilatation. ADRENALS: No adrenal nodules KIDNEYS/URETERS: Minimal left hydroureteronephrosis with mild left perinephric and periureteral fat stranding. No evidence of obstructive urolithiasis. There is a punctate stone abutting the posterior bladder wall, best seen on series 400, image 67. No right renal stone or hydronephrosis. GI TRACT: No abnormal distention, wall thickening, or evidence of bowel obstruction. Colonic diverticulosis without evidence of diverticulitis. Appendix is normal. PELVIC ORGANS/BLADDER: Uterus and adnexa are unremarkable on unenhanced CT assessment. Bilateral adnexal densities could represent tubal ligation clips. Bladder is under distended, limiting evaluation. Punctate calcification abutting the posterior bladder wall as described above. Numerous pelvic phleboliths. LYMPH NODES: No lymphadenopathy. VESSELS: Recanalized umbilical vein. PERITONEUM / RETROPERITONEUM: No free air or fluid. BONES: Grade 1 retrolisthesis of L5 in relation to L4. L5-S1 degenerative changes. SOFT TISSUES: Unremarkable. IMPRESSION: 1. Minimal left hydroureteronephrosis with mild left perinephric and periureteral fat stranding without evidence of obstructive calculus. There is a punctate calculus within bladder, suggestive of a recently passed stone. Underlying urinary tract infection cannot be excluded. 2. Cirrhotic changes of the liver with splenomegaly and recanalized umbilical vein. Tiny hepatic hypodensities cannot be characterized on this unenhanced study. 3. Colonic diverticulosis without evidence of diverticulitis. Signed by: Dr. Milton Yin MD on 09/28/2018 1:51 PM
== END 2018-09-28 14:11 | disposition home or self-care (01) ==
LOC: FSED 12:07
DX: R10.9 Unspecified abdominal pain (principal); R11.2 Nausea with vomiting, unspecified; N20.1 Calculus of ureter
CPT/HCPCS: 74176; 81003; 99284